=== PATIENT | male | born 1925 | race Caucasian/White ===

== ENCOUNTER 2016-08-28 05:16 | Inpatient (IN) | payer OTHER, BC ==
[2016-08-22 13:20] LABS: URINE BILIRUBIN NEGATIVE (Negative); URINE BLOOD NEGATIVE (Negative); URINE COLOR YELLOW; URINE GLUCOSE-RANDOM* NEGATIVE (Negative); URINE KETONES NEGATIVE (Negative); URINE LEUKOCYTES-REFLEX NEGATIVE (Negative); URINE PROTEIN (DIPSTICK) TRACE (Negative); URINE SPECIFIC GRAVITY 1.015 (1.003-1.035); URINE UROBILINOGEN 0.2 E.U./dl (0.2-1.0)
[2016-08-22 13:24] LABS: HEMATOCRIT 38.6 % (42.0-52.0); HEMOGLOBIN 13.2 gm/dL (14.0-18.0); MCHC 34.2 % (28.0-37.0); MCV 96.6 fL (80.0-100.0); RDW 12.4 % (10.5-14.5); WBC 5.7 thou/uL (4.0-11.0)
[2016-08-22 13:36] LABS: PROTIME 10.2 Seconds (9.3-11.4)
[2016-08-22 13:41] LABS: ALBUMIN 3.5 g/dL (3.4-5.0); CREATININE 1.5 mg/dL (0.6-1.3); POTASSIUM 3.9 mmol/L (3.5-5.1)
[~2016-08-28] VITALS: Ht 180.3 cm; Wt 86.9 kg
--- NOTE | ~2016-08-28 | EKG ---
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
--- NOTE | ~2016-08-28 | HC ---
[facility] [address] CONSULTATION Name: GOGOJOSE Room #: 310-P [facility] IN M.R.#: [id number] Admission: 08/28/16 Attend Phys: Cole Vasquez MD Discharge: 09/07/16 Date of : [birth year] Report #: [id number] THIS REPORT FOR: //name// CC: Gene Vasquez DATE OF SERVICE: 08/31/2016 HISTORY OF PRESENT ILLNESS: The patient is an 87-year-old white male who was admitted to [facility] with right knee degenerative arthritis, unresponsive to conservative measures. He underwent a right total knee arthroplasty on August 28. He has had a complicated postoperative course with respiratory failure, noted to have healthcare-associated pneumonia versus aspiration and as warranted cardiopulmonary monitoring. He has been transferred to a monitored butts. Pulmonary medicine is involved. He is being monitored regarding acute renal insufficiency. There is apparent reference to bradycardia. Pulmonary is working him up further as far as V/Q scan and Doppler. He is now on significant O2 4 liters and was on 6 liters overnight. We are seeing him in rehabilitation medicine consultation. PAST MEDICAL HISTORY: Includes, hypertension, GERD, hyperlipidemia, BPH with overactive bladder. There is a history of some mild chronic dementia and anxiety. MEDICATIONS: Please see the full medication listing. SOCIAL HISTORY: Noted to be living in a house with his sibling, premorbid walker, cane ambulator, 12 steps in. REVIEW OF SYSTEMS: Did not offer any current complaints of chest pain or abdominal discomfort. PHYSICAL EXAMINATION: GENERAL: An 89-year-old rather slender white male, in no obvious distress. VITAL SIGNS: Last recorded temp 98, pulse 72, respirations 16, blood pressure 110/48. He is sleepy, but will respond. He is on nasal prong O2. HEENT: Facies appeared to be symmetric. NEUROLOGIC: He appeared to have intact tone of both upper extremities without obvious focal weakness. In his lower extremities, his right knee is dressed. There is no focal calf swelling. Tone appeared to be intact. Functionally, he has been mod assist with bed to chair transfers have been mod assist. ASSESSMENT: An 89-year-old white male with the following problem list: 1. Right total knee arthroplasty, August 28. 2. Postoperative respiratory failure. 3. Bradycardia that has been noted. [address] [address] CONSULTATION Name: GOGOJOSE Room #: 310-P [facility] IN M.R.#: [id number] Admission: 08/28/16 Attend Phys: Cole Vasquez MD Discharge: 09/07/16 Date of : [birth year] Report #: [id number] 4. Rule out pulmonary embolism. 5. Acute renal insufficiency. 6. Healthcare-associated pneumonia versus aspiration. 7. Hypoxia on nasal prong O2. 8. History of paroxysmal atrial fibrillation. 9. BPH. 10. Significant functional mobility and ADL deficits. PLAN: The patient would meet medical necessity requirements for an acute in-hospital inpatient rehabilitation stay. We will need to see how he tolerates therapies and as he further medically stabilizes, we will continue to follow for potential transfer for acute [address] [place] [address] inpatient rehabilitation. Thank you for asking us to assist in this patient's care. <ELECTRONICALLY SIGNED> By: Arcadio Alvarez MD 09/18/16 1617 1957 0127 Arcadio Alvarez MD /nt
--- NOTE | ~2016-08-28 | O ---
[facility] [place] [address] OPERATIVE REPORT Name: GOGOJOSE Go Room #: 310-P [facility] IN M.R.#: [id number] Admission: 08/28/16 Attend Phys: Cole Vasquez MD Discharge: 09/07/16 Date of : [birth year] Report #: [id number] THIS REPORT FOR: //name// CC: Gene Vasquez DATE OF SERVICE: 08/28/2016 PREOPERATIVE DIAGNOSIS: Right knee degenerative joint disease, severe. POSTOPERATIVE DIAGNOSIS: Right knee degenerative joint disease, severe. PROCEDURE: Right total knee arthroplasty. SURGEON: Cole Vasquez M.D. CHIEF LOCK OPERATOR: Raf Herrera, nurse practitioner. INDICATIONS FOR CHIEF LOCK OPERATOR: During the course of operation, extensive manipulation, retraction and limb positioning was required. This was afforded to me by my surgeon's assistant. ANESTHETIC: General. INDICATIONS: See hospital H and P. IMPLANTS UTILIZED: We used a DePuy PFC knee system. We used a cruciate-retaining femoral component, press fit, size 5. We used a size 4 tibial tray with a 10-mm insert and a 41-mm oval dome patella. DESCRIPTION OF PROCEDURE: After adequate general anesthesia had been obtained, the patient's right lower extremity was prepped and draped in the usual meticulous sterile fashion. The limb was gravity exsanguinated and tourniquet inflated to 300 torr. An anterior midline incision was made, subQ divided sharply. Hemostasis obtained with cautery. Medial parapatellar incision was made. Infrapatellar fat pad excised and medial release performed along the joint level only. We drilled the distal femur. This hole was enlarged, irrigated and suctioned and the intramedullary guide placed to full length of the femur. Distal femoral cutting guide pinned to appropriate height, distal femoral cut was made. We used a measurement device to determine that size 5 was the appropriate size for this patient. The distal femur was marked, cutting guide impacted in place and the anterior, posterior and chamfer cuts were made. Rongeur was used to remove additional osteophytes. At this time, the ACL was transected, tibia translated anteriorly and menisci [facility] [address] [place] [address] OPERATIVE REPORT Name: JOSE BOWENS Room #: 310-P DIS IN M.R.#: [id number] Admission: 08/28/16 Attend Phys: Cole Vasquez MD Discharge: 09/07/16 Date of : [birth year] Report #: [id number] were excised. Drill was used to drill the central portion of the tibia. This was enlarged, irrigated and suctioned and the intramedullary guide placed along the tibia. Proximal tibia cutting guide placed at appropriate height. Proximal tibia cut was made. A 4 tray gave us the best coverage on the tibia. We put the trial components in position with the 10 spacer that gave the best flexion and extension gap. Patella tracked normally. At this time, the patella was measured, cutting guide clamped into place and patellar cut was made. The 41 template gave us the best coverage. Pedicles were drilled, trial component put in place and it tracked normally. At this time, the knee was taken through several cycles of flexion and extension. We marked the rotation of the tibial tray and drilled the distal femur. The trial components were removed. The tibial keel cuts were made. Knee was irrigated with both pulse lavage and antibiotic irrigation. Bone plugs were placed in the proximal tibia and distal femur. The knee was irrigated with both pulse lavage and antibiotic irrigation. The cement was vacuum mixed and when it reached the appropriate consistency, the knee was thoroughly dried and the tibial tray was cemented in place. Excess cement was removed. The polyethylene liner was impacted in place and the femur was impacted in place and the knee was taken out to 30 degrees of flexion with uniform compression placed across the components. Patellar button was then cemented into place and again excess cement was removed. At this time, irrigation was placed in the wound and allowed to rest in the wound until the cement fully cured. When it had done so, the knee was irrigated, dried thoroughly and inspected. Drains were placed superolaterally, both deep and superficial. The retinacular layer was closed with a combination of interrupted vmjgnb-li-ldfjo #1 Vicryl as well as running #1 Tevdek. SubQ closed with 2-0 Monocryl and skin closed with james. Sterile compressive dressing applied. Tourniquet deflated. <ELECTRONICALLY SIGNED> By: Cole Vasquez MD 09/11/16 1420 1150 1213 Cole Vasquez MD /nt
--- NOTE | ~2016-08-28 | HC ---
[facility] [place] [address] CONSULTATION Name: JOSE BOWENS Room #: 310-P [facility] IN M.R.#: [id number] Admission: 08/28/16 Attend Phys: Cole Vasquez MD Discharge: 09/07/16 Date of : [birth year] Report #: [id number] THIS REPORT FOR: //name// CC: Gene Vasquez MD DATE OF SERVICE: 08/31/2016 DATE OF SERVICE: 08/31/2016. REFERRING PROVIDER: Gene Hurtado MD. REASON FOR CONSULTATION: Respiratory failure. CHIEF COMPLAINT: Hypoxemia. HISTORY OF PRESENT ILLNESS: I was asked to see the patient in consultation while hospitalized in [facility], was admitted on 08/28/2016, underwent a right knee total arthroplasty. Postoperatively today, he was noted to be a little more confused and hypoxemic requiring high-flow oxygen. Denies any cough, congestion, wheezing. At this time, the patient is somewhat confused, seems alert but only oriented x1. He has also had some fevers overnight. He was started on some antimicrobial therapy with azithromycin and ceftriaxone for left basilar infiltrate or atelectasis. He underwent ventilation perfusion scan earlier today, which revealed normal perfusion and lower extremity venous Doppler which was negative for DVT. Currently, he is now on 3 L nasal cannula with a saturation of 91%. No past pulmonary history and no significant history of environmental exposures or other lung pathology. No underlying cardiac history. ALLERGIES: None known. PAST MEDICAL HISTORY: 1. History of osteoarthritis, status post right total knee arthroplasty. 2. Dementia. 3. History of anxiety. 4. History of prior lumbar spine surgery. 5. History of hypertension. OUTPATIENT MEDICATIONS: Included aspirin, fish oil, tramadol, mirtazapine, MiraLax, vitamin D, tamsulosin. SOCIAL HISTORY: No significant tobacco history and nondrinker. He states he previously had worked for [employer] but cannot really tell me what his job [facility] [address] [place] [address] CONSULTATION Name: JOSE BOWENS Room #: 310-P DIS IN ..#: [id number] Admission: 08/28/16 Attend Phys: Cole Vasquez MD Discharge: 09/07/16 Date of : [birth year] Report #: [id number] title was. Records suggest some other past occupational history. No alcohol consumption. FAMILY HISTORY: Negative for any significant pulmonary disease. REVIEW OF SYSTEMS: Difficult to obtain due to some confusion. Denies any headaches, nausea, vomiting, chest pain. No shortness of breath at this time. He does complain of constipation only. In fact, cannot recall having right knee surgery earlier this week. PHYSICAL EXAMINATION: VITAL SIGNS: Temperature max 39.1 at 4 this morning, temperature current 36.7, pulse 70s, respiratory rate 16, blood pressure 110/48, oxygen saturation 91% on 3 L. GENERAL: This is an elderly male, somewhat confused, no distress. ENT: Clear oropharynx. Mallampati 1 airway. NECK: Supple, no lymphadenopathy. CHEST: Diminished but clear. No wheezes or crackles. CARDIOVASCULAR: Heart was regular. No murmurs noted. ABDOMEN: Soft, nontender, no masses. EXTREMITIES: Right lower extremity is wrapped. There is no significant edema. INTEGUMENT: Without rash. LABORATORY DATA: White blood cell count 11,000; hemoglobin 12; hematocrit 35; platelet count 169. Sodium 142, potassium 4.4, chloride 108, bicarbonate 24, BUN 29, creatinine 1.8, glucose 158. Arterial blood gas done on 4 L revealed pH 7.42, pCO2 of 33, pO2 of 55, bicarbonate 21. INR is 1.0. Urinalysis revealed only a few white blood cells, appeared to be greater than 25 per high power field. Urine culture is pending. IMPRESSION: 1. Hypoxemic respiratory failure, acute, somewhat improved at this time over earlier today. Ventilation perfusion scan, lower extremity Dopplers negative for any significant disease for venous thromboembolism. Chest x-ray suggests more to me atelectasis, less likely infiltrate. Elevated white blood cell count somewhat of a concern; however, it may be related to his abnormal urinalysis. 2. Abnormal urinalysis. 3. Delirium, maybe superimposed from baseline dementia. 4. Recent right total knee arthroplasty. SUGGESTIONS: 1. Encourage incentive spirometry. 2. Add EzPAP to his current aerosol treatments. 3. Minimize any medications that may cause confusion, particularly narcotics. 4. Follow up chest radiograph in a.m. 5. Await urine cultures. [address] [address] CONSULTATION Name: JOSE BOWENS Room #: 310-P DIS IN M.R.#: [id number] Admission: 08/28/16 Attend Phys: Cole Vasquez MD Discharge: 09/07/16 Date of : [birth year] Report #: [id number] 6. Additional recommendations to follow. Thank you for requesting our suggestions. <ELECTRONICALLY SIGNED> By: Gorge Moss MD 09/10/16 0903 1859 0117 Gorge Moss MD /nt
--- NOTE | ~2016-08-28 | EKG ---
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 : 1925 Requested By: Gene Hurtaod Order Number: [id number] MD: Eulogio Brooks Measurements Intervals [place] Rate: 88 P: 117 MD: 225 QRS: 7 QRSD: 97 T: 64 QT: 346 QTc: 419 Interpretive Statements Sinus rhythm Prolonged MD interval Abnormal R-wave progression, early transition Compared to ECG 08/30/2016 14:02:11 Ventricular premature complex(es) no longer present Electronically Signed On 08-31-2016 8:28:22 TORCH BURNER by Eulogio Brooks [email or web address] <ELECTRONICALLY SIGNED> By: Eulogio Brooks MD 08/31/16 0828 Eulogio Brooks MD /LALIT
--- NOTE | ~2016-08-28 | EKG ---
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 : 1925 Requested By: Gene Hurtado Order Number: [id number] MD: Eulogio Brooks Measurements Intervals [place] Rate: 72 P: 24 CT: 256 QRS: 5 QRSD: 104 T: 47 QT: 396 QTc: 434 Interpretive Statements Sinus rhythm Ventricular premature complex Prolonged CT interval Compared to ECG 08/22/2016 13:26:20 Ventricular premature complex(es) now present First degree AV block now present Electronically Signed On 08-30-2016 15:51:32 MORTGAGE SPECIALIST by Eulogio Brooks [email or web address] <ELECTRONICALLY SIGNED> By: Eulogio Brooks MD 08/30/16 1551 1402 1402 Eulogio Brooks MD /EPI
--- NOTE | ~2016-08-28 | H ---
[facility] [place] [place] [address] HISTORY AND PHYSICAL Name: JOSE BOWENS Room #: 535-P ADM IN M.R.#: [id number] Admission: 08/28/16 Attend Phys: Cole Vasquez MD Discharge: Date of : [birth year] Report #: [id number] THIS REPORT FOR: //name// CC: Gene Vasquez MD DATE OF SERVICE: 08/28/2016 CHIEF COMPLAINT: Right knee pain. HISTORY OF PRESENT ILLNESS: The patient is an 89-year-old male, who has been suffering with right knee pain for a number of years and was evaluated for knee replacement surgery and underwent that today with Dr. Vasquez. His past medical history is extensive and includes hypertension and orthostatic hypotension, excessive use of supplements and weight loss and liver toxicity with one of them a couple of years ago. He has some mild dementia and chronic anxiety. He has recorded history of narcolepsy, but I have never observed it clinically and he is on no medication for that. He has had lumbar spine surgery at least twice in the past and has some chronic back pain and mild gait disturbance on account of it. He also has benign prostate hypertrophy and an overactive bladder. Perennial allergic rhinitis. He has no known drug allergies. MEDICATIONS AT HOME INCLUDE: Fish oil, aspirin, tramadol, mirtazapine for depression, MiraLax, vitamin C supplements, ferrous sulfate, multivitamin and vitamin D3. He was also on diltiazem in the past for blood pressure and heart rate control. Tamsulosin 0.4 mg at bedtime and the diltiazem dose was 360 mg of extended release daily and mirtazapine was 7.5 mg nightly. For his glaucoma, he uses Travatan Z eye drops one drop in each eye nightly. 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 He lives on a farm in ____, [place] with his brother and his sister. He is a lifelong nonsmoker, nondrinker and was raised [facility]. FAMILY HISTORY: There is a significant longevity in the family. His sister has Graves' disease and atrial fibrillation. REVIEW OF SYSTEMS: The patient denies any headaches, change in vision, difficulty swallowing. He denies any pain in his neck or difficulty swallowing. He does wear hearing aids. He does use glasses. He denies any shortness of breath or chest pain. He denies any dizziness recently. No problems with abdominal pain. No changes in bowel or bladder habits. His appetite has been good. He stays as active as his arthritic joints allow. The patient has generalized decrease in strength consistent with age, but no new focal deficits. His gait is fairly stable, but he clearly favors that right knee. [facility] [address] [place] [address] HISTORY AND PHYSICAL Name: JOSE BOWENS Go Room #: 535-P [facility] IN M.R.#: [id number] Admission: 08/28/16 Attend Phys: Cole Vasquez MD Discharge: Date of : [birth year] Report #: [id number] Mental status: The patient is alert. He is oriented to person, place and time. He has some eccentric habits that include criticizing his sister whenever she is around much to her family ____. He likes to read books regarding congregation conspiracies and government conspiracies. Despite the mild dementia, he is a remarkably intelligent individual and compensates for his memory deficits very well. He does not drive anymore. His brother, Mehdi; his sister, Vickie take care of him at the family home and have done so for quite a number of years. ASSESSMENT AND PLAN: PROBLEM: 1. Right total knee replacement as per Dr. Vasquez. 2. Hypertension. We will monitor and treat accordingly. 3. He has had some episodes of atrial fibrillation with rapid ventricular response in the remote past, but not recently. I have not given him Diltiazem recently, because of concerns of bradycardia. 4. Orthostatic hypotension. We will get orthostatic vital signs. During his postoperative period in the morning to make sure that he has adequate, but without excessive blood pressure control. 5. Benign prostate hypertrophy and overactive bladder. 6. History of gastroesophageal reflux disease. 7. History of hyperlipidemia. 8. Mild chronic dementia and anxiety. <ELECTRONICALLY SIGNED> By: Gene Hurtado MD 08/29/16 2311 0014 0133 Gene Hurtado MD /nt
--- NOTE | ~2016-08-28 | H ---
[facility] [place] [address] HISTORY AND PHYSICAL Name: JOSE BOWENS Room #: 247-P ADM IN M.R.#: [id number] Admission: 08/28/16 Attend Phys: Cole Vasquez MD Discharge: Date of : [birth year] Report #: [id number] THIS REPORT FOR: //name// CC: Gene Vasquez DATE OF SERVICE: 08/28/2016 ADDENDUM: I have conversed with Dr. Dennis Chandler this evening about this patient's worsening prognosis after knee replacement surgery. He has severe pneumonia that is not responding to aggressive therapy. With the information provided, I spoke with the patient's brother and sister, his only living relatives, with whom he resides for many years in [place], [place]. After explaining his ____ situation, I asked them if he would want to have full code blue status. I explained that meant that all heroic therapeutic treatments would be made in order to keep him alive, if needed, to resuscitate him. I answered all of their questions. They also requested my input. Afterwards, they discussed it between themselves and decided that the patient would not want heroic measures, such as mechanical ventilation, CPR, or electrical cardioversion. With their consent, I have asked Dr. Chandler to enter a no code blue order into the record. <ELECTRONICALLY SIGNED> By: Gene Hurtado MD 09/03/16 2143 1803 1825 MD gael Pepe
[~2016-08-28 05:16] MED LIST: ASPIRIN EC81 M1 PO; CALCIUM; CARDIZEM CD180 MG PO; CLONIDINE-TTS0.3 MG TRANSDERM; DILTIAZEM ER360 MG PO; ECHINACEA; FLAX SEED OIL1000 MG PO; FLOMAX0.4 MG PO; FLONASE 0.05%50 MCG NASAL; GABAPENTIN100 MG PO; GINKO BILOBA; GLYCOLAX17 GM PO; IODINE; IRON325 MG PO; LEVOTHYROXIN0.025 MG PO; LEVOTHYROXINE PO; LOCOID 0.1% CRE15 GM; LORTAB 5-500 T1 EAC1 PO; MAGNESIUM250 M1 PO; MEN-PHOR LOTIO222 M1 TOP; MIRALAX17 G1 PO; MULTI-VITAMIN1 EAC5 PO; MYRBETRIQ25 MG PO; NASA MIST SALIN75 ML NS; OMEGA-31000 M1 PO; PHENAZOPYRIDIN200 M2 PO; PREVALITE PACKE1 PKT PG; PROTONIX40 M1 PO; PUMPKIN SEED EXTRACT; REMERON15 MG PO; REQUIP 1 MG TABL1 M1 PO; SAW PALMETTO; SYNTHROID50 MCG PO; TAMSULOSIN HCL0.4 M1 PO; TRAMADOL HCL50 MG PO; TRAVATAN Z2.5 ML OPHTHALMIC; VITAMIN B COMP1 EAC7 PO; VITAMIN D; VITAMIN D-32000 UNI1 PO; VITAMINC500 PO; ZYRTEC10 M2 PO; [UNRECOGNIZED DRUG - OTHER] PO
[2016-08-28 10:00] VITALS: BP 142/74
[2016-08-28 13:40] VITALS: BP 131/54
[2016-08-28 17:20] VITALS: BP 126/92
[2016-08-28 21:06] VITALS: BP 174/86
[2016-08-28 23:30] VITALS: BP 153/84
[2016-08-29 04:06] LABS: HEMATOCRIT 31.6 % (42.0-52.0); HEMOGLOBIN 10.9 gm/dL (14.0-18.0); MCH 33.3 pg (26.0-34.0); MCHC 34.3 % (28.0-37.0); MCV 96.9 fL (80.0-100.0); RBC 3.26 mil/uL (4.50-6.00); RDW 12.1 % (10.5-14.5); WBC 6.2 thou/uL (4.0-11.0)
[2016-08-29 04:15] LABS: CALCIUM 7.8 mg/dL (8.5-10.1); CREATININE 1.5 mg/dL (0.6-1.3); POTASSIUM 3.5 mmol/L (3.5-5.1)
[2016-08-29 04:46] VITALS: BP 161/80
[2016-08-29 04:48] VITALS: BP 173/84
[2016-08-29 04:54] VITALS: BP 166/85
[2016-08-29 07:26] VITALS: BP 148/54
[2016-08-29 15:44] VITALS: BP 154/71
[2016-08-29 19:05] VITALS: BP 154/78
[2016-08-30] VITALS (7 sets, daily range): BP systolic 114–151; BP diastolic 41–61
[2016-08-30 04:09] LABS: HEMATOCRIT 32.7 % (42.0-52.0); HEMOGLOBIN 11.1 gm/dL (14.0-18.0); MCH 33.3 pg (26.0-34.0); MCHC 34.1 % (28.0-37.0); MCV 97.6 fL (80.0-100.0); RBC 3.35 mil/uL (4.50-6.00); RDW 12.3 % (10.5-14.5); WBC 8.3 thou/uL (4.0-11.0)
[2016-08-31 01:30] VITALS: BP 148/58
[2016-08-31 01:36] LABS: ABG SAMPLE TYPE ARTERIAL; HCO3 20.7 mmol/L (22.0-26.0); LACTATE 1.55 mmol/L (0.5-2.0); O2(CT) 16.2 mL/dL (15.0-23.0); O2Hb 89.8 % (92.0-98.0); PCO2 32.9 mmHg (35.0-45.0); pH 7.417 (7.360-7.450); sO2 89.6 % (92.0-98.0); tCO2 21.7 mmol/L (24.0-30.0)
[2016-08-31 01:37] LABS: PO2 55.2 mmHg (80.0-100.0); STICK SITE R.BRACHIAL
[2016-08-31 01:59] LABS: HEMATOCRIT 34.9 % (42.0-52.0); HEMOGLOBIN 11.7 gm/dL (14.0-18.0); MCHC 33.6 % (28.0-37.0); MCV 98.3 fL (80.0-100.0); RBC 3.55 mil/uL (4.50-6.00); RDW 12.3 % (10.5-14.5)
[2016-08-31 04:00] VITALS: BP 131/55
[2016-08-31 07:36] LABS: URINE BILIRUBIN NEGATIVE (Negative); URINE BLOOD 3+ (Negative); URINE COLOR YELLOW; URINE GLUCOSE-RANDOM* NEGATIVE (Negative); URINE KETONES NEGATIVE (Negative); URINE NITRITE NEGATIVE (Negative); URINE PROTEIN (DIPSTICK) 1+ (Negative); URINE SPECIFIC GRAVITY >= 1.030 (1.003-1.035); URINE UROBILINOGEN 0.2 E.U./dl (0.2-1.0)
[2016-08-31 07:47] VITALS: BP 149/94
[2016-08-31 07:57] LABS: HYALINE CASTS 0-3 Few /LPF (None Seen); SQUAMOUS 0-3 Few /LPF (0-3); WBC CLUMPS Few (None Seen)
[2016-08-31 07:57] LABS: CREATININE 1.8 mg/dL (0.6-1.3); POTASSIUM 4.4 mmol/L (3.5-5.1)
[2016-08-31 07:58] LABS: AMORPHOUS URATES Moderate /LPF (None Seen); URINE RBC >20 Many /HPF (0-2); URINE WBC >25 Many /HPF (0-5)
[2016-08-31 07:59] LABS: BACTERIA >30 Many /HPF (None Seen)
[2016-08-31 15:52] VITALS: BP 110/48
[2016-08-31 20:00] VITALS: BP 149/64
[2016-09-01 04:00] VITALS: BP 155/65
[2016-09-01 04:41] LABS: ABG SAMPLE TYPE ARTERIAL; BE(vivo) -2.2 mmol/L (-2 to +3); HCO3 22.2 mmol/L (22.0-26.0); LACTATE 1.21 mmol/L (0.5-2.0); O2(CT) 13.1 mL/dL (15.0-23.0); O2Hb 89.1 % (92.0-98.0); PCO2 36.7 mmHg (35.0-45.0); PO2 55.4 mmHg (80.0-100.0); sO2 89.1 % (92.0-98.0); tCO2 23.3 mmol/L (24.0-30.0)
[2016-09-01 04:42] LABS: STICK SITE L.RADIAL
[2016-09-01 07:59] VITALS: BP 146/66
[2016-09-01 14:36] LABS: MCH 33.4 pg (26.0-34.0); MCHC 34.3 % (28.0-37.0); MCV 97.5 fL (80.0-100.0); RBC 3.28 mil/uL (4.50-6.00); RDW 12.7 % (10.5-14.5); WBC 7.7 thou/uL (4.0-11.0)
[2016-09-01 14:44] LABS: ALBUMIN 2.3 g/dL (3.4-5.0); CALCIUM 8.2 mg/dL (8.5-10.1); CREATININE 1.7 mg/dL (0.6-1.3); POTASSIUM 3.9 mmol/L (3.5-5.1); TOTAL BILIRUBIN 0.4 mg/dL (<0.1-1.0); TOTAL PROTEIN 5.9 g/dL (6.4-8.2)
[2016-09-01 15:28] VITALS: BP 153/64
[2016-09-01 20:00] VITALS: BP 146/68
[2016-09-02] VITALS (9 sets, daily range): BP systolic 131–155; BP diastolic 55–87
[2016-09-03] VITALS (21 sets, daily range): BP systolic 122–180; BP diastolic 54–160
[2016-09-03 05:06] LABS: HEMATOCRIT 29.7 % (42.0-52.0); HEMOGLOBIN 10.3 gm/dL (14.0-18.0); MCH 33.3 pg (26.0-34.0); MCHC 34.6 % (28.0-37.0); MCV 96.4 fL (80.0-100.0); RBC 3.09 mil/uL (4.50-6.00); WBC 5.6 thou/uL (4.0-11.0)
[2016-09-03 07:58] LABS: CREATININE 1.4 mg/dL (0.6-1.3); POTASSIUM 3.6 mmol/L (3.5-5.1)
[2016-09-03 07:59] LABS: CALCIUM 8.4 mg/dL (8.5-10.1)
[2016-09-04 09:20] VITALS: BP 112/70
[2016-09-04 16:00] VITALS: BP 166/71
[2016-09-04 20:36] VITALS: BP 158/69
[2016-09-05 04:10] VITALS: BP 140/66
[2016-09-05 08:37] VITALS: BP 160/74
[2016-09-05 17:30] VITALS: BP 139/57
[2016-09-05 19:45] VITALS: BP 163/63
[2016-09-06 03:30] VITALS: BP 157/63
[2016-09-06 09:37] VITALS: BP 164/64
[2016-09-06 11:09] VITALS: BP 147/76
[2016-09-06 16:58] VITALS: BP 1518/62
[2016-09-06 19:37] VITALS: BP 148/61
[2016-09-07 03:00] VITALS: BP 151/58
[2016-09-07 08:15] VITALS: BP 163/65
[2016-09-07] MEDS ORDERED: XARELTO10 MG PO (12:58)
[2016-09-07] MEDS ORDERED: DUONEB 2.5-0.5 M3 ML INH (12:58)
[2016-09-07] MEDS ORDERED: HYDROCODONE-APA1 TA1 PO (12:59)
[2016-09-07] MEDS ORDERED: ACETAMINOPHEN325 M1 PO (13:00)
[2016-09-07] MEDS ORDERED: MAG-AL PLUS SUS30 ML PO (13:02)
[2016-09-07] MEDS ORDERED: LIDODERM 5%1 PATC1 TRANSDERM (13:03)
[2016-09-07] MEDS ORDERED: MULTIVITAMINS1 EAC7 PO (13:04)
[2016-10-28] MEDS ORDERED: CEPACOL SORE T1 EAC7 PO (11:55)
[2016-10-28] MEDS ORDERED: ALBUTEROL2.5 MG/3 M INH (11:55)
[2016-10-28] MEDS ORDERED: REMERON15 MG PO (11:55)
[2016-10-28] MEDS ORDERED: ROBITUSSIN DM118 ML PO (11:55)
== END 2016-09-07 13:45 | DRG 469 ==
LOC: 5S 05:16 → TBA 05:16 → PRE 09:50 → 5S 14:07 → 4E 08-31 03:03 → ICU 09-02 18:29 → 3N 09-04 09:00
PROVIDERS: Internal Medicine; Internal Medicine Pulmonary Disease; Orthopaedic Surgery
PROC: 0SRC0JZ Replacement of Right Knee Joint with Synthetic Substitute, Open Approach (ICD-10-PCS; principal; 2016-08-28)
DX: M17.11 Unilateral primary osteoarthritis, right knee (principal); G92 Toxic encephalopathy; N39.0 Urinary tract infection, site not specified; N17.9 Acute kidney failure, unspecified; F03.90 Unspecified dementia, unspecified severity, without behavioral disturbance, psychotic disturbance, mood disturbance, and anxiety; F41.9 Anxiety disorder, unspecified; R41.0 Disorientation, unspecified; K21.9 Gastro-esophageal reflux disease without esophagitis; E78.5 Hyperlipidemia, unspecified; N40.0 Benign prostatic hyperplasia without lower urinary tract symptoms; R00.1 Bradycardia, unspecified; I95.1 Orthostatic hypotension; E03.9 Hypothyroidism, unspecified; I48.0 Paroxysmal atrial fibrillation; N32.81 Overactive bladder; I12.9 Hypertensive chronic kidney disease with stage 1 through stage 4 chronic kidney disease, or unspecified chronic kidney disease; N18.3 Chronic kidney disease, stage 3 (moderate); Z82.49 Family history of ischemic heart disease and other diseases of the circulatory system; Z79.82 Long term (current) use of aspirin; Z79.899 Other long term (current) drug therapy
CPT/HCPCS: 10078; 10096; 10183; 10785; 50010; 50101; 50415; 50612; 50954; 51130; 51225; 51320; 51412; 51771; 52001; 52282; 53000; 53078; 53364; 56525; 56527; 62110; 70005

== ENCOUNTER 2017-06-21 10:09 | Inpatient (IN) | payer OTHER, BC ==
[~2017-06-21] VITALS: Ht 180.3 cm; Wt 81.2 kg
--- NOTE | ~2017-06-21 | 2DMMODE ---
[facility] [address] [place] [place] [address] 2 D/M-MODE ECHOCARDIOGRAM Name: JOSE BOWENS Go Room #: 363-P ADM IN .R.#: [id number] Admission: 06/21/17 Attend Phys: Gene Hurtado MD Discharge: Date of : [birth year] Date of Service: 06/23/17 1313 Report #: [id number] THIS REPORT FOR: //name// APPROVED REPORT Study performed: 06/22/2017 09:10:59 EXAM: Comprehensive 2D, Doppler, and color-flow Echocardiogram Patient Location: Bedside Room #: 363 Status: routine BSA: 1.99 BP: 151/94 mmHg Other Information Study Quality: Technically Limited Technically limited study due to lung disease. Indications Elevated Troponin Hypertension/HDD 2D Dimensions RVDd: 32.48 mm LVEF(%): 45.79 (>50%) IVSd: 13.10 (7-11mm) LVOT Diam: 19.99 (18-24mm) LVDd: 36.21 mm PWd: 14.06 (7-11mm) LVDs: 28.14 (25-40mm) Aortic Root: 32.96 mm Aguirre's LVEF: 45.79 % Volumes Left Atrial Volume (Systole) Single Plane 4CH: 50.02 mL Single Plane 2CH: 63.90 mL LA ESV Index: 32.00 mL/m2 Aortic Valve AoV Peak Valentin.: 1.44 m/s AO Peak Gr.: 8.30 mmHg LVOT Max P.27 mmHg LVOT Max V: 1.03 m/s KAVON Vmax: 2.25 cm2 Mitral Valve MV Decel. Time: 136.30 ms [facility] [employer] [place] [address] 2 D/M-MODE ECHOCARDIOGRAM Name: JOSE BOWENS Room #: 363-P ADM IN [facility]#: [id number] Admission: 06/21/17 Attend Phys: Gene Hurtado MD Discharge: Date of : [birth year] Date of Service: 06/23/17 1313 Report #: [id number] Max Valentin.: 0.77 m/s IVRT: 76.12 ms Tricuspid Valve RAP Estimate: 15.00 mmHg Left Ventricle The left ventricle is normal size. Regional wall motion is not well visualized but grossly normal. Mild concentric left ventricular hypertrophy. The left ventricular ejection fraction is within the normal range. LVEF is 55%. This study is not technically sufficient to allow evaluation of the LV diastolic function. Right Ventricle The right ventricle is normal size. The right ventricular systolic function is normal. Atria The left atrium size is normal. The right atrium size is normal. Aortic Valve The aortic valve is not well visualized. Trace aortic regurgitation. There is no aortic valvular stenosis. Mitral Valve The mitral valve is normal in structure. Mild-moderate mitral regurgitation. No evidence of mitral valve stenosis. Tricuspid Valve The tricuspid valve is normal in structure. Trace tricuspid regurgitation. Unable to assess PA pressure. Pulmonic Valve Pulmonic valve is not well visualized. Great Vessels The aortic root is normal in size. Ascending aorta is not visualized. IVC is dilated and collapses <50% with inspiration. Pericardium There is no pericardial effusion. <Conclusion> Limited study [facility] [address] [place] [address] 2 D/M-MODE ECHOCARDIOGRAM Name: GOGOJOSE Room #: 363-P [facility] IN [facility].#: [id number] Admission: 06/21/17 Attend Phys: Gene Hurtado MD Discharge: Date of : [birth year] Date of Service: 06/23/171312 Report #: [id number] The left ventricular ejection fraction is within the normal range. Regional wall motion is not well visualized but grossly normal. LVEF is 55%. The aortic valve is not well visualized. No aortic valvular stenosis, trace insufficiency. The mitral valve is normal in structure. Mild-moderate mitral regurgitation. Pulmonary artery pressure could not be reliably ascertained There is no pericardial effusion. <ELECTRONICALLY SIGNED> By: Virgil Reno MD, [facility] 06/23/171312 12 1313 Virgil Reno MD, FACC /INF
--- NOTE | ~2017-06-21 | HC ---
[facility] [place] [address] CONSULTATION Name: JOSE BOWENS Room #: 363-P [facility] IN .R.#: [id number] Admission: 06/21/17 Attend Phys: Gene Hurtado MD Discharge: Date of : [birth year] Report #: [id number] THIS REPORT FOR: //name// CC: Gene Hurtado DATE OF SERVICE: 06/22/2017 ATTENDING PHYSICIAN: Gene Hurtado MD REASON FOR CONSULTATION: Possible pneumonia. HISTORY OF PRESENT ILLNESS: The patient is an 89-year-old white man who apparently suffered a fall this past Saturday. The patient apparently was supposed to visit the emergency room, but due to some misunderstanding, they walked out of the emergency room with sister. The patient is brought back to the hospital by rescue squad personnel. Currently, the patient is trying to have breakfast. I queried him as to what is going on and he tells me he was given a list of things he needs to do and apparently what he is reading is the TV programing. At this point in time, questioning of the patient is suspended. History relates that the patient has suffered a fall at home and here in the hospital he is found to have elevation of CPK as well as possibly some rhabdomyolysis, dehydration and azotemia. PAST MEDICAL HISTORY: Tonsillectomy. Back surgery for herniated disk. Hernia repair. Short-term memory loss. Hypothyroidism. Benign prostatic hypertrophy. History of peptic ulcer disease. Hypertension. Total knee replacement, right knee. DRUG ALLERGIES: None listed. MEDICATIONS: The patient is currently on treatment with cholecalciferol, ferrous sulfate, levothyroxine, latanoprost, albuterol inhalation treatment, benzocaine/menthol ____ p.r.n., guaifenesin, dextromethorphan p.r.n., mirtazapine p.r.n., polyethylene glycol 17 grams daily, Rocephin 1 gram IV daily and azithromycin 250 mg IV daily. The patient is to receive 1500 mg of vancomycin today since blood cultures showing gram-positive cocci. SOCIAL HISTORY: See H and P, old records. FAMILY HISTORY: See H and P, old records. REVIEW OF SYSTEMS: See H and P, old records. PHYSICAL EXAMINATION: GENERAL: Elderly man, not toxic looking, confused, unable to give significant medical history. [address] [address] CONSULTATION Name: JOSE BOWENS Room #: 363-P [facility] IN .R.#: [id number] Admission: 06/21/17 Attend Phys: Gene Hurtado MD Discharge: Date of : [birth year] Report #: [id number] VITAL SIGNS: Temperature 98, pulse 97, respirations 18, BP 155/89. HEENMT: Conjunctivae pale. Pupils reactive. Mouth: No thrush. NECK: Supple. LUNGS: Crackles both lung cali. HEART: S1, S2. No gallop or murmur. ABDOMEN: Soft, no masses or megaly. GENITALIA: Bae catheter in place. RECTAL: Deferred. EXTREMITIES: No clubbing, cyanosis. NEUROLOGIC: Confusion, otherwise grossly within normal limits. LABORATORY DATA: Revealed sodium 141, CO2 of 20, BUN 80, creatinine 3.3 ____ he had abnormal renal functions previously, glucose 138. Magnesium 2.5. Total CPK 639. Lactic acid elevated at 2.1 and 2.6 yesterday. Troponin mildly elevated at 0.83. NT-proBNP 31,495. WBC 6400, hemoglobin 10.9 g/dL, thrombocytopenia of 112,000 noted. The white blood cell count differential yesterday revealed 75% segmented neutrophils, 16% bands. The MRSA by PCR is negative. The urinalysis revealed 2+ protein, 1+ blood, 1-9 bacteria per HPF. ABGs revealed pH 7.42, pCO2 of 29, pO2 of 64.9, bicarbonate 18.6, lactate 1.8. These set of gases on 4 liters oxygen nasal cannula. MICROBIOLOGY DATA: Two out of 2 blood cultures show gram-positive cocci consistent with staphylococcus. We will repeat blood cultures today. RADIOLOGY EVALUATION: CT scan of the head revealed atrophy, no acute findings. 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 CT scan of the chest and pelvis revealed layering bilateral pleural effusion, ground-glass opacities, bilateral renal cysts, enlarged prostate. A repeat chest x-ray revealed extensive patchy infiltrates. ASSESSMENT: 1. Gram-positive cocci bacteremia, undetermined source. 2. Bilateral pulmonary infiltrates, possible congestive heart failure versus atypical pneumonitis. 3. Altered mental status, question underlying cognitive impairment with worsening mentation secondary to above. 4. Acute kidney injury. 5. Recent fall. 6. Benign prostatic hypertrophy. SUGGESTIONS: Recommend urine for Legionella and Streptococcus pneumoniae antigen. Repeat blood cultures x 2. Continue coverage with Rocephin and Zithromax. Dose vancomycin 1500 mg IV today. [facility] [address] [place] [address] CONSULTATION Name: JOSE BOWENS Room #: 967-P ADM IN [place].#: [id number] Admission: 06/21/17 Attend Phys: Gene Hurtado MD Discharge: Date of : [birth year] Report #: [id number] Hurtado, thank you for requesting my suggestions. <ELECTRONICALLY SIGNED> By: Arian Brooks MD 06/25/17 0906 0900 2312 Arian Brooks MD /nt
--- NOTE | ~2017-06-21 | EKG ---
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: : 1925 Requested By: Shubham Arriaga Order Number: [id number] MD: Eulogio Brooks Measurements Intervals [place] Rate: 100 P: [place]: QRS: 3 QRSD: 106 T: 30 QT: 363 QTc: 469 Interpretive Statements Atrial fibrillation Compared to ECG 10/24/2016 18:59:14 Sinus rhythm no longer present First degree AV block no longer present Ventricular premature complex(es) no longer present Electronically Signed On 06-21-2017 15:34:12 CDT by Eulogio Brooks [email or web address] <ELECTRONICALLY SIGNED> By: Eulogio Brooks MD 06/21/17 1534 1120 1120 Eulogio Brooks MD /EPI
--- NOTE | ~2017-06-21 | EKG ---
[address] [address] ELECTROCARDIOGRAM REPORT Name: JOSE BOWENS Room #: 363-P ADM IN M.R.#: [id number] Admission: 06/21/17 Attend Phys: Gene Hurtado MD Discharge: Date of : [birth year] Report #: [id number] THIS REPORT FOR: //name// [facility] Test Date: 2017-06-24 Test Time: 08:19:34 Pat Name: JOSE BOWENS Department: Room: 363 P Gender: M Slot Attendant: Pankaj GABRIEL : 1925 Requested By: Kerrie Anthony Order Number: [id number] MD: Virgil Reno Measurements Intervals [place] Rate: 78 P: 21 MT: 121 QRS: 9 QRSD: 106 T: 2 QT: 418 QTc: 477 Interpretive Statements Sinus rhythm Ventricular premature complex Borderline prolonged QT interval Compared to ECG 06/21/2017 11:20:27 Ventricular premature complex(es) now present Atrial fibrillation no longer present Electronically Signed On 06-24-2017 8:32:07 CDT by Virgil Reno [email or web address] <ELECTRONICALLY SIGNED> By: Virgil Reno MD, [facility] 06/24/17 0832 8 8 Virgil Reno MD, [facility] /EPI
[~2017-06-21 10:09] MED LIST changes: +ACETAMINOPHEN325 M1 PO; +ALBUTEROL2.5 MG/3 M INH; +CEPACOL SORE T1 EAC7 PO; +DUONEB 2.5-0.5 M3 ML INH; +HYDROCODONE-APA1 TA1 PO; +LIDODERM 5%1 PATC1 TRANSDERM; +MAG-AL PLUS SUS30 ML PO; +MULTIVITAMINS1 EAC7 PO; +ROBITUSSIN DM118 ML PO; +XARELTO10 MG PO
[2017-06-21 10:16] VITALS: BP 153/87
[2017-06-21 12:14] LABS: HEMATOCRIT 34.5 % (42.0-52.0); HEMOGLOBIN 11.4 gm/dL (14.0-18.0); MCH 32.1 pg (26.0-34.0); MCHC 33.1 g/dL (28.0-37.0); RBC 3.56 mil/uL (4.50-6.00); RDW 13.5 % (10.5-14.5); WBC 7.9 thou/uL (4.0-11.0)
[2017-06-21 12:16] LABS: MANUAL DIFF YES
[2017-06-21 12:25] LABS: CALCIUM 8.9 mg/dL (8.5-10.1); POTASSIUM 4.1 mmol/L (3.5-5.1)
[2017-06-21 12:30] LABS: ALBUMIN 2.5 g/dL (3.4-5.0); MAGNESIUM 2.6 mg/dL (1.8-2.4); TOTAL BILIRUBIN 0.9 mg/dL (<0.1-1.0); TOTAL PROTEIN 6.7 g/dL (6.4-8.2)
[2017-06-21 12:37] LABS: TROPONIN-I 0.83 ng/mL (<0.06)
[2017-06-21 12:54] LABS: ABSOLUTE NEUTROPHILS 7.2 thou/uL (1.4-8.2); TOTAL CELL COUNT 100
[2017-06-21 12:55] LABS: ANISOCYTOSIS SLIGHT; PLATELET COUNT 117 thou/uL (150-400); POIKILOCYTOSIS SLIGHT
[2017-06-21 13:44] VITALS: BP 153/103
[2017-06-21 14:33] VITALS: BP 170/93
[2017-06-21 16:33] VITALS: BP 188/100
[2017-06-21 16:47] LABS: ABG SAMPLE TYPE ARTERIAL; BE(vivo) -4.6 mmol/L (-2 to +3); HCO3 18.6 mmol/L (22.0-26.0); O2(CT) 15.8 mL/dL (15.0-23.0); O2Hb 91.3 % (92.0-98.0); PO2 64.9 mmHg (80.0-100.0); STICK SITE R.RADIAL; pH 7.425 (7.360-7.450); sO2 93.5 % (92.0-98.0); tCO2 19.5 mmol/L (24.0-30.0)
[2017-06-21 17:34] LABS: URINE BILIRUBIN 1+ (Negative); URINE BLOOD 1+ (Negative); URINE COLOR YELLOW; URINE GLUCOSE-RANDOM* NEGATIVE (Negative); URINE KETONES NEGATIVE (Negative); URINE LEUKOCYTES-REFLEX NEGATIVE (Negative); URINE PROTEIN (DIPSTICK) 2+ (Negative); URINE SPECIFIC GRAVITY 1.025 (1.003-1.035); URINE UROBILINOGEN 0.2 E.U./dl (0.2-1.0)
[2017-06-21 17:35] LABS: ICTOTEST (BILI CONFIRMATORY) Negative (Negative)
[2017-06-21 17:43] LABS: CASTS None Seen /LPF (None Seen); CRYSTALS None Seen /LPF (None Seen); SQUAMOUS None Seen /LPF (0-3); URINE RBC 0-2 Rare /HPF (0-2); URINE WBC-REFLEX None Seen /HPF (0-5)
[2017-06-21 18:33] VITALS: BP 182/89
[2017-06-21 19:53] VITALS: BP 173/67
[2017-06-22 00:15] VITALS: BP 169/76
[2017-06-22 04:30] VITALS: BP 151/94
[2017-06-22 04:48] LABS: HEMATOCRIT 32.6 % (42.0-52.0); HEMOGLOBIN 10.9 gm/dL (14.0-18.0); MCH 32.3 pg (26.0-34.0); MCHC 33.5 g/dL (28.0-37.0); MCV 96.3 fL (80.0-100.0); RBC 3.38 mil/uL (4.50-6.00); RDW 13.8 % (10.5-14.5); WBC 6.4 thou/uL (4.0-11.0)
[2017-06-22 05:01] LABS: CALCIUM 8.4 mg/dL (8.5-10.1); CREATININE 3.3 mg/dL (0.7-1.3); MAGNESIUM 2.5 mg/dL (1.8-2.4); POTASSIUM 4.4 mmol/L (3.5-5.1)
[2017-06-22 07:54] VITALS: BP 155/89
[2017-06-22 12:00] VITALS: BP 167/85
[2017-06-22 15:46] VITALS: BP 166/79
[2017-06-22 19:29] VITALS: BP 185/82
[2017-06-23 03:53] VITALS: BP 116/82
[2017-06-23 07:58] VITALS: BP 145/80
[2017-06-23 08:47] LABS: CALCIUM 8.2 mg/dL (8.5-10.1); CREATININE 2.6 mg/dL (0.7-1.3); POTASSIUM 3.4 mmol/L (3.5-5.1)
[2017-06-23 12:05] VITALS: BP 17/56
[2017-06-23 15:32] VITALS: BP 147/55
[2017-06-23 19:49] VITALS: BP 164/78
[2017-06-24 05:10] VITALS: BP 147/54
[2017-06-24 05:32] LABS: ALBUMIN 1.8 g/dL (3.4-5.0); CALCIUM 8.2 mg/dL (8.5-10.1); CREATININE 2.8 mg/dL (0.7-1.3); DIRECT BILIRUBIN 2.3 mg/dL (<0.1-0.3); TOTAL BILIRUBIN 3.7 mg/dL (<0.1-1.0); TOTAL PROTEIN 5.5 g/dL (6.4-8.2)
[2017-06-24 08:06] VITALS: BP 147/55
[2017-06-24 11:25] VITALS: BP 164/64
[2017-06-24 17:07] VITALS: BP 149/59
[2017-06-24 20:05] VITALS: BP 163/69
[2017-06-25 04:15] VITALS: BP 115/55
[2017-06-25 07:20] VITALS: BP 112/55
== END 2017-06-25 09:30 | DRG 871 ==
LOC: ER 10:09 → 3W 13:28 → EROBS 13:28 → 3W 14:00
PROVIDERS: Emergency Medicine; Internal Medicine
DX: A41.01 Sepsis due to Methicillin susceptible Staphylococcus aureus (principal); J18.9 Pneumonia, unspecified organism; E43 Unspecified severe protein-calorie malnutrition; G93.40 Encephalopathy, unspecified; J96.90 Respiratory failure, unspecified, unspecified whether with hypoxia or hypercapnia; N17.9 Acute kidney failure, unspecified; I13.0 Hypertensive heart and chronic kidney disease with heart failure and stage 1 through stage 4 chronic kidney disease, or unspecified chronic kidney disease; E87.0 Hyperosmolality and hypernatremia; Z66 Do not resuscitate; N40.0 Benign prostatic hyperplasia without lower urinary tract symptoms; E03.9 Hypothyroidism, unspecified; K21.9 Gastro-esophageal reflux disease without esophagitis; Z96.651 Presence of right artificial knee joint; I50.9 Heart failure, unspecified; I95.1 Orthostatic hypotension; G62.9 Polyneuropathy, unspecified; N18.3 Chronic kidney disease, stage 3 (moderate); I48.0 Paroxysmal atrial fibrillation; F03.90 Unspecified dementia, unspecified severity, without behavioral disturbance, psychotic disturbance, mood disturbance, and anxiety; D64.9 Anemia, unspecified; E87.6 Hypokalemia; F09 Unspecified mental disorder due to known physiological condition; Z91.81 History of falling; Z68.25 Body mass index [BMI] 25.0-25.9, adult; Z87.11 Personal history of peptic ulcer disease; Z87.891 Personal history of nicotine dependence; Z79.899 Other long term (current) drug therapy; Z90.49 Acquired absence of other specified parts of digestive tract
CPT/HCPCS: 10779